=== PATIENT | female | born 1980 | race Caucasian/White ===

== ENCOUNTER 2017-03-23 10:55 | Emergency (ER) | payer OTHER ==
[~2017-03-23] VITALS: Ht 170.2 cm; Wt 75.5 kg
[2017-03-23 10:56] VITALS: BP 120/72; PULSE 66; RESP 16; TEMP 98.6; O2SAT 99
[2017-03-23 12:21] LABS: BETA HCG QUANT 13994 MIU/ML (0-5)
--- NOTE | 2017-03-23 12:23 | PD ---
HPI Chief Complaint: Medical Clearance Time Seen by Provider: 12:18 Travel History International Travel<30 days: No Contact w/Intl Traveler<30days: No Traveled to known affect area: No History of Present Illness HPI 37-year-old female that presents to the ED for evaluation of repeat beta. Per patient she is currently with her second . Per patient she's been following with [facility] and she was found to have a twin . Patient has had pelvic exams as well as ultrasounds and that is because she went there because she had some vaginal bleeding and some abdominal cramping. She states that she still has some abdominal cramping and minor spotting and she was told by her doctor that she needed a repeat beta so she came here. She comes here only for the better. She denies any other symptoms. She states that the spotting is minimal. She has some abdominal cramping but states that it's improving. She denies any other medical problems. She denies any surgeries. She states that she has follow-up next week with her doctor and she came here only for the beta. [facility] Past Medical History Medical History: Denies Significant Hx ?: LMP: 01/14/2017 : 1 Para: 1 Ovarian Cysts: Yes Past Surgical History Surgical History: No Previous Surgery Social History Alcohol Use: No Tobacco Use: No Substance Use: No Allergies-Medications (Allergen,Severity, Reaction): Coded Allergies: No Known Allergies (Unverified , 03/23/17) Review of Systems Except as stated in HPI: all other systems reviewed are Neg Physical Exam Narrative GENERAL: SKIN: Warm and dry. HEAD: Atraumatic. Normocephalic. EYES: Pupils equal and round. No scleral icterus. No injection or drainage. ENT: No nasal bleeding or discharge. Mucous membranes pink and moist. Tongue is midline. No uvula deviation. NECK: Trachea midline. No JVD. CARDIOVASCULAR: Regular rate and rhythm. No murmurs, S3, S4. RESPIRATORY: No accessory muscle use. Clear to auscultation. Breath sounds equal bilaterally. GASTROINTESTINAL: Abdomen soft, non-tender, nondistended. Hepatic and splenic margins not palpable. MUSCULOSKELETAL: Extremities without clubbing, cyanosis, or edema. No obvious deformities. Full range of motion of the upper and lower extremities bilaterally. 2+ pulses bilaterally. NEUROLOGICAL: Awake and alert. No obvious cranial nerve deficits. Motor grossly within normal limits. Five out of 5 muscle strength in the arms and legs. Normal speech. PSYCHIATRIC: Appropriate mood and affect; insight and judgment normal. Data Data Last Documented VS Vital Signs Date Time Temp Pulse Resp B/P Pulse Ox O2 Delivery O2 Flow Rate FiO2 03/23/17 10:56 98.6 66 16 120/72 99 Room Air Orders Beta Hcg (Quant/Titer) (03/23/17 11:04) Labs Laboratory Tests Test 03/23/17 11:20 Human Chorionic Gonadotropin, [address] MIU/ML Quant MDM Medical Decision Making Medical Screen Exam Complete: Yes Emergency Medical Condition: Yes Medical Record Reviewed: Yes Interpretation(s) Beta 62865 Differential Diagnosis Threatened versus Versus Bleeding Narrative Course 37-year-old female that presents to the ED for evaluation of repeat beta. Patient was properly examined and was found to have signs and symptoms consistent appears to be repeated labwork for possible threatened . Patient came here with paperwork from her doctor were she's had that ultrasound as well as the blood work. Her last beta was in the 20,000. She had an ultrasound just 2 days ago that showed twin and IUP. She is here mainly for a recheck of this to see whether is going up or down. She declines pelvic as well as ultrasound which I believe is not necessary at this time and she has good follow-up. Beta was ordered. Beta showed 13,000. Possible threatened still possible. Recommendation at this time is for patient to follow up with her HAIR ASSISTANT this coming week. My attending and I spoke with the patient at length of possible outcomes. Patient understands need to follow- up. Per patient she has a follow-up on Saturday and she is already set up for an ultrasound. She will likely wait until then to get US as it was offered here. See ED worsening symptoms. Follow up with PCP. Diagnosis Primary Impression: Threatened miscarriage in early Patient Instructions: General Instructions Additional Instructions: Your beta level here is 13,994. Please follow up with your OB this coming week for reevaluation. See ED if anything worsens. Med/Other Pt SpecificInfo: No Change to Meds Disposition: 01 DISCHARGE HOME Condition: Stable Juan Jose Alvarado Mar 23, 2017 12:22
--- NOTE | 2017-03-23 12:34 | PD ---
Data Data Last Documented VS Vital Signs Date Time Temp Pulse Resp B/P Pulse Ox O2 Delivery O2 Flow Rate FiO2 03/23/17 10:56 98.6 66 16 120/72 99 Room Air Orders Beta Hcg (Quant/Titer) (03/23/17 11:04) Labs Laboratory Tests Test 03/23/17 11:20 Human Chorionic Gonadotropin, [address]1936 MIU/ML Quant MDM Supervised Visit with [place]: Yes Narrative Course I, Dr. Erickson, have reviewed the advance practice practitioner's documentation and am in agreement, met with the patient face to face, made the diagnosis, and the medical decision making was done by me. *My assessment and Findings: Patient seen and examined by me in addition to Juan Jose Alvarado PA-C, patient is a 37-year-old female presents emergency department today from [place] for repeat hCG. Patient states she is in town to celebrate her anniversary. Patient was diagnosed with twin gestation with a beta hCG of 20,002 days ago. She had an ultrasound at that point where the twins each measured in 6 weeks and change but the patient is 9 weeks by last menstrual period patient has a report with her and I have reviewed this report which shows that no heart tones could be identified in either gestation by M-mode. This may be because it was too early for heart tones. Patient has no complaints currently denies any vaginal bleeding abdominal pain abdominal cramping. Today patient is hCG is 13,000. Juan Jose and I spends time at the bedside discussing the results with the patient which could mean that she is having miscarriage, could mean that she has had an intrauterine demise of one or both of the twins. She was offered a repeat ultrasound but she would rather follow up with her WEIGHT ENGINEER on Saturday. Given that she has no physical complaints at this time I have no objections this course of action. Patient was counseled closely that she needs to return the emergency department should she have any abdominal pain. Bleeding fevers or any other complaints. She is stable for discharge at this time. Patient has nontender abdominal exam. Agree with Juan Jose Alvarado's documentation as above. Diagnosis Primary Impression: Threatened miscarriage in early Patient Instructions: General Instructions Departure Forms: Tests/Procedures Additional Instruction: Your beta level here is 13,994. Please follow up with your OB this coming week for reevaluation. See ED if anything worsens. Disposition: 01 DISCHARGE HOME Condition: Stable Adolfo Erickson MD Mar 23, 2017 12:34
== END 2017-03-23 12:51 | disposition home or self-care (01) ==
LOC: NEPD 10:55
DX: O20.0 Threatened abortion (principal)
CPT/HCPCS: 84702; 99284